=== PATIENT | female | born 1955 | race Caucasian/White ===

== ENCOUNTER 2022-06-06 06:59 | Day surgery (SDC) | payer MEDICARE, BC ==
[2022-06-05 12:13] VITALS: BMI 21.8
[~2022-06-06 06:59] MED LIST: EPINEPHrine 0.3 MG in Ophthalmic Irrigation Solution 500 ML IRR SCH; Midazolam HCl 2 mg/2 ml Vial ONE; fentaNYL PF 100 MCG/2 ML SYRINGE ONE
[2022-06-06] MEDS ORDERED: Lidocaine 1% MPF 2 ML VIAL ONE (08:08)
[2022-06-06] MEDS ORDERED: Cyclopentolate 1% Opth Drop 2 ML BOT ONE (08:08)
[2022-06-06] MEDS ORDERED: Phenylephrine 2.5% Ophth Soln 5 ML BOT ONE (08:08)
[2022-06-06] MEDS ORDERED: PROPOFOL 200 MG/20 ML VIAL ONE (09:00)
[2022-06-06] MEDS ORDERED: Indocyanine Green 25 MG/10 ML VIAL ONE (09:00)
[2022-06-06] MEDS ORDERED: Bupivacaine 0.75% 10 ML VIAL ONE (09:00)
[2022-06-06] MEDS ORDERED: Lidocaine 4% PF 5 ML AMP ONE (09:00)
== END 2022-06-06 10:44 | disposition home or self-care (01) ==
LOC: SDC 06:59
PROVIDERS: ATTEND Ophthalmology Retina Specialist
PROC: 08T53ZZ Resection of Left Vitreous, Percutaneous Approach (ICD-10-PCS; principal; 2022-06-06)
PROC: 08NF3ZZ Release Left Retina, Percutaneous Approach (ICD-10-PCS; 2022-06-06)
DX: H35.372 Puckering of macula, left eye (principal); E03.9 Hypothyroidism, unspecified; Z85.3 Personal history of malignant neoplasm of breast; Z86.16 Personal history of COVID-19; Z79.890 Hormone replacement therapy; Z79.899 Other long term (current) drug therapy
CPT/HCPCS: J0171; J2250; J2704; J3490